=== PATIENT | male | born 1930 | race Two or more races ===

== ENCOUNTER 2022-03-12 13:42 | Emergency (ER) | payer OTHER ==
[~2022-03-12] VITALS: Ht 177.8 cm; Wt 59.0 kg
[~2022-03-12 13:42] MED LIST: CALTRATE PLUS T1 TAB PO; COZAAR100 MG PO; FISH OIL1 CAP PO; GLUCOSAMINE 1,51 CA1 PO; MULTIVITAMIN1 CAP PO; NORVASC2.5 MG PO; PROSCAR5 MG PO
== END 2022-03-12 15:56 | disposition home or self-care (01) ==
LOC: ER 13:42
DX: S09.90XA Unspecified injury of head, initial encounter (principal); W22.8XXA Striking against or struck by other objects, initial encounter; Y93.9 Activity, unspecified; Y92.9 Unspecified place or not applicable; F03.90 Unspecified dementia, unspecified severity, without behavioral disturbance, psychotic disturbance, mood disturbance, and anxiety; I10 Essential (primary) hypertension; D64.9 Anemia, unspecified; E11.9 Type 2 diabetes mellitus without complications; N40.0 Benign prostatic hyperplasia without lower urinary tract symptoms